=== PATIENT | female | born 1965 | race Two or more races ===

== ENCOUNTER 2021-07-31 05:28 | Day surgery (SDC) | payer OTHER ==
[~2021-07-31 05:28] MED LIST: SYNTHROID137 MCG PO
[2021-07-31] MEDS ORDERED: IBU800 MG PO (08:44)
[2021-07-31] MEDS ORDERED: CIPRO500 MG PO (08:44)
== END 2021-07-31 14:45 | disposition home or self-care (01) ==
LOC: CIR.AMB 05:28
PROVIDERS: ATTEND Obstetrics & Gynecology Gynecology
DX: N81.12 Cystocele, lateral (principal); E03.9 Hypothyroidism, unspecified; E66.9 Obesity, unspecified; Z20.822 Contact with and (suspected) exposure to COVID-19